=== PATIENT | female | born 1945 | race Caucasian/White ===

== ENCOUNTER 2017-02-19 18:08 | Emergency (ER) | payer MEDICARE, OTHER ==
[~2017-02-19] VITALS: Ht 152.4 cm; Wt 72.1 kg
[~2017-02-19 18:08] MED LIST: CARDIZEM CD240 MG; LOPRESSOR25
[2017-02-19] MEDS ORDERED: NORCO 5-325 TA1 EACH PO (20:12)
[2017-02-19 21:21] VITALS: BP 162/87
== END 2017-02-19 21:22 | disposition home or self-care (01) ==
LOC: M.ERS 18:08
DX: S43.004A Unspecified dislocation of right shoulder joint, initial encounter (principal); M25.551 Pain in right hip; I10 Essential (primary) hypertension; X58.XXXA Exposure to other specified factors, initial encounter; Z88.0 Allergy status to penicillin; Y93.89 Activity, other specified; Y92.89 Other specified places as the place of occurrence of the external cause; Y99.8 Other external cause status